=== PATIENT | female | born 1955 | race Caucasian/White ===

== ENCOUNTER → 2016-09-14 13:58 | Outpatient (CLI) | payer OTHER ==
[2012-12-03 06:30] VITALS: BMI 24.4
[~2016-09-14 13:58] MED LIST: ANASTROZOLE1 MG PO; CELEXA10 MG PO
== END | disposition home or self-care (01) ==
LOC: D.MRI 13:58
DX: R26.9 Unspecified abnormalities of gait and mobility (principal)

== ENCOUNTER 2017-06-03 06:09 | Emergency (ER) | payer OTHER ==
[2012-12-03 06:30] VITALS: BMI 24.4
== END 2017-06-03 06:52 | disposition home or self-care (01) ==
LOC: D.ER 06:09
DX: M54.5 Low back pain (principal); M54.30 Sciatica, unspecified side; Z85.3 Personal history of malignant neoplasm of breast; C85.90 Non-Hodgkin lymphoma, unspecified, unspecified site

== ENCOUNTER 2018-01-08 21:16 | Emergency (ER) | payer OTHER ==
[~2018-01-08] VITALS: Ht 175.3 cm; Wt 74.5 kg
[2018-01-08 21:22] VITALS: Ht 175.3 cm; Wt 74.5 kg
[2018-01-08] MEDS ORDERED: PEPCID AC20 MG (21:24)
[2018-01-08] MEDS ORDERED: NEURONTIN 300300 MG (21:24)
[2018-01-08] MEDS ORDERED: AMBIEN10 MG (21:25)
[2018-01-08 22:10] LABS: BASOPHILS 0.1 % (0-2); EOSINOPHILS 1.6 % (0-7); HEMATOCRIT 39.4 % (36.0-48.0); HEMOGLOBIN 13.7 g/dL (12-16); IMMATURE GRANULOCYTES 0.1 % (0-5); LYMPHOCYTES 31.9 % (15-50); MCH 29.5 pg (26.0-34.0); MCHC 34.8 g/dL (31.0-37.0); MCV 84.7 fL (80.0-100.0); MEAN PLATELET VOLUME 9.3 fL (7.4-10.4); MONOCYTES 8.8 % (2-11); NEUTROPHILS 57.5 % (40-80); PLATELET COUNT 179 10x3/uL (130-400); RBC 4.65 10x6/uL (4.00-5.40); RDW 12.8 % (11.5-14.5)
[2018-01-08 22:26] LABS: ALBUMIN 3.8 g/dL (3.4-5.0); ALKALINE PHOSPHATASE 65 U/L (46-116); ALT (SGPT) 43 U/L (10-68); BILIRUBIN - TOTAL 0.55 mg/dL (0.2-1.3); CALC OSMOLALITY 281 mosm/kg (275-300); CALCIUM 9.4 mg/dL (8.5-10.1); CARBON DIOXIDE 30.8 mmol/L (21.0-32.0); CHLORIDE - SERUM 103 mmol/L (98-107); CREATININE - SERUM 0.9 mg/dL (0.6-1.3); GLUCOSE 136 mg/dL (74-106); POTASSIUM - SERUM 3.3 mmol/L (3.5-5.1); PROTEIN - SERUM 7.5 g/dL (6.4-8.2); SODIUM 141 mmol/L (136-145); UREA NITROGEN 11 mg/dL (7-18); eGFR NON AFRICAN AMERICAN 68 mL/min (90-120)
[2018-01-08 22:28] LABS: LIPASE 158 U/L (73-393); TROPONIN-I < 0.017 ng/mL (0.000-0.060)
[2018-01-08 23:28] VITALS: BP 112/60
== END 2018-01-08 23:28 | disposition home or self-care (01) ==
LOC: D.ER 21:16
PROVIDERS: Family Medicine
DX: F41.9 Anxiety disorder, unspecified (principal); Z85.3 Personal history of malignant neoplasm of breast; Z85.72 Personal history of non-Hodgkin lymphomas; E87.6 Hypokalemia; R06.02 Shortness of breath; R13.10 Dysphagia, unspecified

== ENCOUNTER → 2018-10-10 14:30 | Outpatient (CLI) | payer OTHER ==
[2018-01-08 21:22] VITALS: BMI 24.2
[~2018-10-10 14:30] MED LIST changes: +AMBIEN10 MG; +NEURONTIN 300300 MG; +PEPCID AC20 MG
== END | disposition home or self-care (01) ==
LOC: D.MRI 14:30
PROVIDERS: ATTEND Orthopaedic Surgery
DX: M54.5 Low back pain (principal)